=== PATIENT | female | born 1995 | race Caucasian/White ===

== ENCOUNTER 2017-01-12 01:52 | Emergency (ER) | payer OTHER ==
[~2017-01-12] VITALS: Ht 162.6 cm; Wt 77.5 kg
[~2017-01-12 01:52] MED LIST: ACYC15OI6 TOP; AZIT250T94 PO; D-ME473S18 PO; IBUP-1542 PO; IBUP400T22 PO; ONDA4TAB8 PO
[2017-01-12 01:57] VITALS: Ht 162.6 cm; Wt 77.5 kg
[2017-01-12] MEDS ORDERED: morphine 4 MG/ML VIAL IV STA (02:37)
[2017-01-12] MEDS ORDERED: SOD CHLORIDE 0.9% 1,000 ML IV STA (02:37)
[2017-01-12] MEDS ORDERED: ONDANSETRON 4 MG INJ IV STA (02:37)
--- NOTE | 2017-01-12 03:03 | ERD ---
ER Documentation Chief Complaint Date/Time DATE: 01/12/17 TIME: 02:55 Chief Complaint Pt reports hx kidney infxs and back pain x 2 weeks HPI 21-year-old female presents here in emergency department for complaints of bilateral flank pain, dysuria, fever chills nausea vomiting for 2 weeks now. Patient has been having bilateral flank pain, sharp pain, succession skeletal accompanied with dysuria, burning pain, depression scale. Patient has been having fever, nausea and vomiting. Patient apparently blood in the vomit. ROS All systems reviewed and are negative except as per history of present illness. Medications Home Meds Active Scripts Acetaminophen* (Tylophen*) 500 Mg Capsule, 1 CAP PO Q6H Y for PAIN AND OR ELEVATED TEMP, #20 CAP Prov:CHILANGO SIEGEL NP 01/12/17 Ibuprofen* (Motrin*) 600 Mg Tab, 600 MG PO Q6H Y for PAIN AND OR ELEVATED TEMP, #30 TAB Prov:CHILANGO SIEGEL NP 01/12/17 Phenazopyridine Hcl* (Pyridium*) 200 Mg Tab, 200 MG PO TID Y for URINARY PAIN, # 6 TAB Prov:CHILANGO SIEGEL NP 01/12/17 Ciprofloxacin Hcl* (Ciprofloxacin Hcl*) 500 Mg Tablet, 500 MG PO BID for 10 Days , TAB Prov:CHILANGO SIEGEL NP 01/12/17 Ibuprofen* (Motrin*) 600 Mg Tab, 600 MG PO Q6H Y for PAIN, #15 TAB Prov:MILAGROS REYES MD 09/23/16 Dextromethorphan Hb-Promethazine Hcl (Promethazine DM Syrup) 473 Ml Syrup, 5 ML PO Q6 Y for COUGH for 5 Days, ML Prov:MILAGROS REYES MD 09/23/16 Azithromycin* (Zithromax*) 250 Mg Tablet, 250 MG PO .LUIS A DIRECTED, #6 TAB TAKE 500 MG (2 TABS) THE FIRST DAY THEN 250 MG (1 TAB) DAYS 2-5 Prov:MILAGROS REYES MD 09/23/16 Ibuprofen* (Motrin*) 400 Mg Tab, 400 MG PO Q6, #30 TAB Prov:MAGDA RENDON PA-C 11/22/16 Ondansetron Hcl* (Zofran*) 4 Mg Tablet, 4 MG PO Q6H for NAUSEA AND/OR VOMITING, #15 TAB Prov:MAGDA RENDON PA-C 09/07/16 Acyclovir* (Acyclovir* Oint) 5%-15 Gm Oint, 1 APPLIC TOP QID for 7 Days, #1 TUB Prov:[place] [employer] 03/19/16 Allergies Allergies: Coded Allergies: ceftriaxone (Verified Allergy, Unknown, throat swelling, 06/26/16) PMhx/Soc History of Surgery: No Anesthesia Reaction: No Hx Neurological Disorder: No Hx Respiratory Disorders: No Hx Cardiac Disorders: Yes (HTN) Hx Psychiatric Problems: No Hx Miscellaneous Medical Probl: No Hx Alcohol Use: Yes (LAST TAKEN 3 WEEKS AGO) Hx Substance Use: Yes (Alcohol ) Hx Tobacco Use: No Physical Exam Vitals Vital Signs Date Time Temp Pulse Resp B/P Pulse Ox O2 Delivery O2 Flow Rate FiO2 01/12/17 07:18 99.1 116 20 132/77 99 Room Air 01/12/17 05:55 101.0 130 20 96 Room Air 01/12/17 05:20 102.2 133 22 100 Room Air 01/12/17 01:57 100.9 130 20 163/97 98 Physical Exam GENERAL: The patient is well developed and appropriate for usual state of health, in no apparent distress. CHEST: Clear to auscultation bilaterally. There are no rales, wheezes or rhonchi. HEART: Regular rate and rhythm. No murmurs, clicks, rubs or gallops. No S3 or S4. ABDOMEN: Soft, nontender and nondistended. Good bowel sounds. No rebound or guarding. No gross peritonitis. No gross organomegaly or masses. No Harkins sign or McBurney point tenderness. BACK: No midline tenderness, bilateral CVA tenderness noted EXTREMITIES: Equal pulses bilaterally. There is no peripheral clubbing, cyanosis or edema. No focal swelling or erythema. Full range of motion. Grossly neurovascularly intact. NEURO: Alert and oriented. Cranial nerves 2-12 intact. Motor strength in all 4 extremities with 5/5 strength. Sensation grossly intact. Normal speech and gait. SKIN: There is no apparent rash or petechia. The skin is warm and dry. HEMATOLOGIC AND LYMPHATIC: There is no evidence of excessive bruising or lymphedema. No gross cervical, axillary, or inguinal lymphadenopathy. Result Diagram: 01/12/1731101/12/17311 Results 24 hrs Laboratory Tests Test 01/12/17 03:12 White Blood Count 16.510^3/ul Red Blood Count 4.8210^6/ul Hemoglobin 13.8g/dl Hematocrit 41.5% Mean Corpuscular Volume 86.1fl Mean Corpuscular Hemoglobin 28.6pg Mean Corpuscular Hemoglobin Concent 33.3g/dl Red Cell Distribution Width 12.9% Platelet Count 74824^3/UL Mean Platelet Volume 9.4fl Neutrophils % 85.8% Lymphocytes % 8.2% Monocytes % 5.2% Eosinophils % 0.2% Basophils % 0.2% Nucleated Red Blood Cells % 0.0/100WBC Neutrophils # 14.210^3/ul Lymphocytes # 1.410^3/ul Monocytes # 0.910^3/ul Eosinophils # 0.010^3/ul Basophils # 0.010^3/ul Nucleated Red Blood Cells # 0.010^3/ul Urine Color LT. YELLOW Urine Clarity SLIGHTLY CLOUDY Urine pH 6.0 Urine Specific [place] 1.020 Urine Ketones NEGATIVE Urine Nitrite NEGATIVE Urine Bilirubin NEGATIVE Urine Urobilinogen 0.2 E.U./dL Urine Leukocyte Esterase NEGATIVE Urine Microscopic RBC 0-2/HPF Urine Microscopic WBC 0-2/HPF Urine Squamous Epithelial Cells MODERATE Urine Amorphous Urates MANY Urine Bacteria OCCASIONAL Urine Hemoglobin TRACE Urine Glucose NEGATIVE% Urine Total Protein NEGATIVE Sodium Level 145mmol/L Potassium Level 3.9mmol/L Chloride Level 103mmol/L Carbon Dioxide Level 27mmol/L Anion Gap 19 Blood Urea Nitrogen 12mg/dl Creatinine 0.64mg/dl Glucose Level 116mg/dl Lactic Acid Level 1.9mmol/L Calcium Level 10.3mg/dl Total Bilirubin 0.4mg/dl Direct Bilirubin 0.00mg/dl Indirect Bilirubin 0.4mg/dl Aspartate Amino Transf (AST/SGOT) 26IU/L Alanine Aminotransferase (ALT/SGPT) 38IU/L Alkaline Phosphatase 115IU/L Total Protein 8.4g/dl Albumin 5.0g/dl Globulin 3.40g/dl Albumin/Globulin Ratio 1.47 Lipase 131U/L Current Medications Medications (Trade) Dose Ordered Sig/Farzaneh Route PRN Reason Start Time Stop Time Status Last Admin Dose Admin Sodium Chloride (NS) 1,000 ml @ 1,000 mls/hr Q1H STAT IV 01/12/17 02:37 01/12/17 03:36 DC 01/12/17 03:14 Morphine Sulfate (morphine) 4 mg ONCE STAT IV 01/12/17 02:37 01/12/17 02:38 DC 01/12/17 03:14 Ondansetron HCl (Zofran Inj) 4 mg ONCE STAT IV 01/12/17 02:37 01/12/17 02:38 DC 01/12/17 03:14 Ibuprofen (Motrin) 600 mg ONCE ONCE PO 01/12/17 04:30 01/12/17 04:31 DC 01/12/17 04:35 Acetaminophen 500 mg 500 mg ONCE STAT PO 01/12/17 04:24 01/12/17 04:25 DC 01/12/17 04:35 Levofloxacin/ Dextrose (Levaquin 500mg/ D5W 100 ml (Pmx)) 100 ml @ 100 mls/hr ONCE ONCE IVPB 01/12/17 05:30 01/12/17 06:29 DC 01/12/17 05:15 Ketorolac Tromethamine 30 mg 30 mg ONCE STAT IV 01/12/17 05:08 01/12/17 05:10 DC 01/12/17 05:16 Sodium Chloride (NS) 1,000 ml @ 1,000 mls/hr Q1H ONCE IV 01/12/17 06:00 01/12/17 06:59 DC 01/12/17 05:46 Patient was given medication for pain here in emergency department, after treatment, patient verbalized feeling much better. Patient's pain is improved.Patient was given Zofran here in the emergency department. After treatment, patient was able to tolerate po fluids here in the emergency department without any vomiting. There is no signs and symptoms of dehydration. Normal saline IV bolus was given here in emergency department for rehydration, patient tolerated IV fluids. PROCEDURE: CT abdomen and pelvis without intravenous contrast. CLINICAL INDICATION: Pain. TECHNIQUE: CT of the abdomen/pelvis was performed utilizing axial images with reconstructions in sagittal and coronal planes. The administered radiation dose is CTDI 12.7 mGy, DLP 746 mGy-cm. COMPARISON: 09/07/2016 FINDINGS: Visualized Chest: The visualized lung bases are clear. Abdomen: The spleen, pancreas, gallbladder,and adrenal glands are unremarkable. The liver is diffusely decreased in attenuation, compatible with hepatic steatosis. The kidneys are without hydronephrosis. No definite urinary calculi are seen. There is no evidence of bowel obstruction. The appendix is normal. No intra- abdominal free air is seen. There is no evidence of intra-abdominal adenopathy or free fluid. Pelvis: An IUD is noted within the uterus. The uterus and ovaries are without enlargement. There is no pelvic adenopathy or free fluid. The urinary bladder is unremarkable. Osseous structures: Unremarkable. IMPRESSION: No acute findings. IUD within the uterus. Hepatic steatosis. RPTAT: HIKT .Gopal Manuel MD, MD Date Time Electronically viewed and signed by .Gopal Manuel MD, MD on 01/12/2017 03:50 .T/ CC: CHILANGO SIEGEL BACK [employer]KER Procedures/MDM Medical Decision Making: Patient's symptoms most likely is consistent with pyelonephritis, I spoke with my attending physician, Dr Jean, consulted him with this, he still recommended to treated with IV Levaquin, and CiproFloxin to go home with, urine culture was sent. Considering patient's symptoms, most likely patient has urinary tract infection with pyelonephritis. There is low suspicion for abdominal emergencies at this time. Patients abdominal exam is normal at this time. Patients radiology exam does not show any abdominal emergencies at this time. There is low suspicion for appendicitis, cholecystitis , abdominal aortic aneurysms or peritonitis at this time. There is low suspicion for sepsis. Patient appears well and is hemodynamically stable. Disposition: Home. Condition: Stable Prescription ciprofloxacin, Pyridium, ibuprofen, Tylenol Instructions: Patient is advised to take medications as prescribed. Patient is advised to rest, increase fluid intake and do brat diet for next 1-2 days and progress as tolerated. Patient is advised that if symptoms are worse, severe abdominal pain, uncontrolled vomiting, high fever, severe flank pain, worst signs and symptoms, to return to the emergency department immediately. Otherwise, patient can follow up with primary care doctor in 5-7 days. Departure Diagnosis: Primary Impression: Pyelonephritis Condition: Stable Patient Instructions: Pyelonephritis, Female (Adult) Additional Instructions: Patient is advised to take medications as prescribed. Patient is advised to rest , increase fluid intake and do brat diet for next 1-2 days and progress as tolerated. Patient is advised that if symptoms are worse, severe abdominal pain , uncontrolled vomiting, high fever, severe flank pain, worst signs and symptoms , to return to the emergency department immediately. Otherwise, patient can follow up with primary care doctor in 5-7 days. CHILANGO SIEGEL NP Jan 12, 2017 03:03
[2017-01-12 03:34] LABS: ADD SCAN DIFF NO
[2017-01-12 03:35] LABS: BASOPHILS % 0.2 % (0.0-2.0); EOSINOPHILS % 0.2 % (0.0-7.0); HEMATOCRIT 41.5 % (37.0-47.0); HEMOGLOBIN 13.8 g/dl (12.0-16.0); LYMPHOCYTES # 1.4 10^3/ul (0.8-2.9); LYMPHOCYTES % 8.2 % (15.0-51.0); MEAN CORPUSCULAR HEMOGLOBIN 28.6 pg (29.0-33.0); MEAN CORPUSCULAR HGB CONC 33.3 g/dl (32.0-37.0); MEAN CORPUSCULAR VOLUME 86.1 fl (82.0-101.0); MEAN PLATELET VOLUME 9.4 fl (7.4-10.4); MONOCYTE # 0.9 10^3/ul (0.3-0.9); MONOCYTES % 5.2 % (0.0-11.0); NEUTROPHIL # 14.2 10^3/ul (1.6-7.5); NEUTROPHILS % 85.8 % (39.0-77.0); PLATELET COUNT 271 10^3/UL (140-415); RED BLOOD COUNT 4.82 10^6/ul (4.20-5.40); RED CELL DISTRIBUTION WIDTH 12.9 % (11.5-14.5); WHITE BLOOD COUNT 16.5 10^3/ul (4.8-10.8)
--- NOTE | 2017-01-12 03:50 | RADRPT ---
PROCEDURE: CT abdomen and pelvis without intravenous contrast. CLINICAL INDICATION: Pain. TECHNIQUE: CT of the abdomen/pelvis was performed utilizing axial images with reconstructions in s agittal and coronal planes. The administered radiation dose is CTDI 12.7 mGy, DLP 746 mGy-cm. COMPARISON: 09/07/2016 FINDINGS: Visualized Chest: The visualized lung bases are clear. Abdomen: The spleen, pancreas, gallbladder,and adrenal glands are unremarkable. The liver is diffusely decr eased in attenuation, compatible with hepatic steatosis. The kidneys are without hydronephrosis. No definite urinary calculi are seen. There is no evidence of bowel obstruction. The appendix is normal. No intra-abdominal free air is seen. There is no evidence of intra-abdominal adenopathy or free fluid. Pelvis: An IUD is noted within the uterus. The uterus and ovaries are without enlargement. There is no pel elsy adenopathy or free fluid. The urinary bladder is unremarkable. Osseous structures: Unremarkable. IMPRESSION: No acute findings. IUD within the uterus. Hepatic steatosis. RPTAT: HIKT .Gopal Manuel MD, MD Date Time Electronically viewed and signed by .Gopal Manuel MD, MD on 01/12/2017 03:50 .T/
[2017-01-12 03:57] LABS: POTASSIUM 3.9 mmol/L (3.5-5.1)
[2017-01-12 03:59] LABS: BILIRUBIN,INDIRECT 0.4 mg/dl (0-1.1); BILIRUBIN,TOTAL 0.4 mg/dl (0.2-1.3); CREATININE 0.64 mg/dl (0.44-1.00)
[2017-01-12 04:00] LABS: ALBUMIN/GLOBULIN RATIO 1.47; CALCIUM 10.3 mg/dl (8.4-10.2); TOTAL PROTEIN 8.4 g/dl (6.1-8.1)
[2017-01-12 04:07] LABS: ADD UMIC YES; URINE BILIRUBIN (Dip) NEGATIVE (NEGATIVE); URINE BLOOD (Dip) TRACE (NEGATIVE); URINE COLOR LT. YELLOW (YELLOW); URINE GLUCOSE (Dip) NEGATIVE (NEGATIVE); URINE KETONES (Dip) NEGATIVE (NEGATIVE); URINE LEUKOCYTE ESTERASE (Dip) NEGATIVE (NEGATIVE); URINE NITRITE (Dip) NEGATIVE (NEGATIVE); URINE TOTAL PROTEIN (Dip) NEGATIVE (NEGATIVE); URINE UROBILINOGEN (Dip) 0.2 E.U./dL (0.1-1.0)
[2017-01-12 04:13] LABS: URINE RBCS 0-2 /HPF (0)
[2017-01-12 04:14] LABS: BACTERIA,URINE OCCASIONAL; SQUAMOUS EPITHELIAL CELL,UR MODERATE
[2017-01-12] MEDS ORDERED: ACETAMINOPHEN 500 MG TAB PO STA (04:24)
[2017-01-12] MEDS ORDERED: IBUPROFEN 600 MG TAB PO ONE (04:30)
[2017-01-12] MEDS ORDERED: KETOROLAC 30 MG INJ IV STA (05:08)
[2017-01-12] MEDS ORDERED: PHEN-538 PO (05:22)
[2017-01-12] MEDS ORDERED: ACET500C5 PO (05:22)
[2017-01-12] MEDS ORDERED: CIPR500T4 PO (05:22)
[2017-01-12] MEDS ORDERED: IBUP-1542 PO (05:22)
[2017-01-12] MEDS ORDERED: LEVOFLOXACIN 500MG/D5W (PMX) 100 ML IVPB ONE (05:30)
[2017-01-12] MEDS ORDERED: SOD CHLORIDE 0.9% 1,000 ML IV ONE (06:00)
[2017-01-12 07:18] VITALS: BP 132/77; PULSE 116; RESP 20; TEMP 99.1
== END 2017-01-12 07:21 | disposition home or self-care (01) ==
LOC: FTE 01:52
DX: N12 Tubulo-interstitial nephritis, not specified as acute or chronic (principal); R11.2 Nausea with vomiting, unspecified; I10 Essential (primary) hypertension
CPT/HCPCS: 36415; 74176; 80053; 81001; 83605; 83690; 85025; 87086; 87400; 96361; 96374; 96375; J1885; J1956; J2270; J2405; J7030; Z7502; Z7610; 81003

== ENCOUNTER 2017-03-05 19:53 | Emergency (ER) | payer SELFPAY ==
[~2017-03-05] VITALS: Ht 154.9 cm; Wt 78.0 kg
[~2017-03-05 19:53] MED LIST changes: +ACET500C5 PO; +CIPR500T4 PO; +PHEN-538 PO
[2017-03-05 20:05] VITALS: Ht 154.9 cm; Wt 78.0 kg
== END 2017-03-05 21:53 | disposition left against medical advice (07) ==
LOC: E/R 19:53
DX: Z53.21 Procedure and treatment not carried out due to patient leaving prior to being seen by health care provider (principal)